=== PATIENT | female | born 1970 | race African-American/Black ===

== ENCOUNTER 2016-10-29 11:56 | Emergency (ER) | payer SELFPAY ==
[~2016-10-29 11:56] MED LIST: A/F PAIN RELIE500 M1 PO; GLUCOTROL10 MG PO; HCTZ; KEFLEX PO; LISINOPRIL; LISINOPRIL PO; LOC; METFORMIN PO; NEXIUM PO
== END 2016-10-29 19:08 ==
LOC: CED 11:56
DX: I46.9 Cardiac arrest, cause unspecified (principal); I10 Essential (primary) hypertension; E11.9 Type 2 diabetes mellitus without complications; K21.9 Gastro-esophageal reflux disease without esophagitis
CPT/HCPCS: 99285; J0171